=== PATIENT | female | born 1955 | race Caucasian/White ===

== ENCOUNTER 2017-02-08 16:46 | Emergency (ER) | payer BC ==
[2017-02-08 16:58] VITALS: BP 142/100; PULSE 100; TEMP 98; BMI 30.4
--- NOTE | 2017-02-08 18:18 | PDOC ---
History of Present Illness - General Chief Complaint: Pain Stated Complaint: PAIN, ACUTE Time Seen by Provider: 02/08/17 17:27 History Source: Patient Exam Limitations: No Limitations - History of Present Illness Initial Comments: 02/08/17 18:14 61 yr female with pain to right leg comes and goes for 1 week. Pt recently traveled to [place] and returned on 01/12/17. Pt denies chest pain no SOB no fever or chills. Pt has history of psoriasis to lower legs for many years. 02/08/17 18:30 Past History - Past Medical History Allergies/Adverse Reactions: Allergies Allergy/AdvReac Type Severity Reaction Status Date / Time No Known Allergies Allergy Unverified 02/08/17 16:59 Home Medications: Ambulatory Orders Fluoxetine HCl [Prozac] 10 mg PO DAILY 07/16/14 Diabetes: No HTN: No Hypercholesterolemia: Yes (borderline cholesterol) Suicide Attempt (Hx): No - Psycho/Social/Smoking Cessation Hx Anxiety: No Suicidal Ideation: No Smoking Status: No Smoking History: Never smoked Number of Cigarettes Smoked Daily: 0 Hx Alcohol Use: No Drug/Substance Use Hx: No Substance Use Type: None *Physical Exam - Vital Signs Last Vital Signs Temp Pulse Resp BP Pulse Ox 98.0 F 100 H 20 142/100 97 02/08/17 16:51 02/08/17 16:51 02/08/17 16:51 02/08/17 16:51 02/08/17 16:51 - Physical Exam General Appearance: Yes: Nourished, Appropriately Dressed HEENT: positive: EOMI, BERENICE Respiratory/Chest: positive: Lungs Clear, Normal Breath Sounds Cardiovascular: positive: Regular Rhythm, Regular Rate Musculoskeletal: positive: Normal Inspection Extremity: positive: Normal Capillary Refill, Normal Inspection, Normal Range of Motion. negative: Tender, Swelling, Calf Tenderness Integumentary: positive: Normal Color, Dry, Warm Neurologic: positive: Fully Oriented, Alert, Normal Mood/Affect, Normal Response , Motor Strength 5/5 ED Treatment Course - RADIOLOGY Radiology Studies Ordered: Category Date Time Status DUPLEX VASCUL US-1 LEG [US] Stat Ultrasound 02/08/17 17:27 Ordered Medical Decision Making - Medical Decision Making 02/08/17 18:32 cc: pain to right upper thigh worse at night , throbbing sensation, fatigue feeling to the right leg recent airplane trip back from [place] on 01/12/17 no history of DVT sent by PMD to r/o DVT 02/08/17 19:09 negative DVT copy given to pt who will follow with her doctor tomorrow. all questions asked and answered at dc pt satisfied with the care and the treatment plan. *DC/Admit/Observation/Transfer Diagnosis at time of Disposition: Leg pain, right - Discharge Dispostion Disposition: HOME Condition at time of disposition: Good - Referrals Referrals: South Pham MD [Primary Care Provider] - - Patient Instructions Additional Instructions: follow with your doctor tomorrow you can try motrin or naprosyn to see if that helps with any pain
== END 2017-02-08 19:31 | disposition home or self-care (01) ==
LOC: JER 16:46 → JERFT 16:46
DX: M79.604 Pain in right leg (principal); L40.8 Other psoriasis
CPT/HCPCS: 93971-TC; 99281-25